=== PATIENT | female | born 1960 | race Caucasian/White ===

== ENCOUNTER 2016-11-07 07:52 | Day surgery (SDC) | payer BC ==
[~2016-11-07] VITALS: Ht 165.1 cm; Wt 99.7 kg
[2016-11-07] VITALS (16 sets, daily range): BP systolic 100–142; BP diastolic 65–99; PULSE 72–89; RESP 14–22; Ht 165.1 cm; Wt 99.7 kg
[2016-11-07] MEDS ORDERED: LISI40TA9 PO (08:07)
[2016-11-07] MEDS ORDERED: ALBU18HF INHALATION (08:07)
[2016-11-07] MEDS ORDERED: CHOL100062 PO (08:08)
[2016-11-07] MEDS ORDERED: BUPR75TA9 PO (08:08)
[2016-11-07] MEDS ORDERED: IBUP800T25 PO (08:09)
[2016-11-07] MEDS ORDERED: SERT100T PO (08:09)
[2016-11-07 08:25] LABS: ABNORMAL IP MESSAGE 1; BASOPHIL # 0.1 10^3/ul (0.0-0.1); BASOPHILS % 0.8 % (0.0-2.0); EOSINOPHILS # 0.4 10^3/ul (0.0-0.5); EOSINOPHILS % 3.6 % (0.0-7.0); HEMATOCRIT 45.6 % (37.0-47.0); HEMOGLOBIN 15.4 g/dl (12.0-16.0); LYMPHOCYTES # 5.1 10^3/ul (0.8-2.9); LYMPHOCYTES % 44.4 % (15.0-51.0); MEAN CORPUSCULAR HEMOGLOBIN 32.4 pg (29.0-33.0); MEAN CORPUSCULAR HGB CONC 33.8 g/dl (32.0-37.0); MEAN PLATELET VOLUME 10.4 fl (7.4-10.4); MONOCYTE # 1.2 10^3/ul (0.3-0.9); NEUTROPHILS % 40.7 % (39.0-77.0); PLATELET COUNT 295 10^3/UL (140-415); RED BLOOD COUNT 4.75 10^6/ul (4.20-5.40); RED CELL DISTRIBUTION WIDTH 12.1 % (11.5-14.5); WHITE BLOOD COUNT 11.5 10^3/ul (4.8-10.8)
[2016-11-07 08:26] LABS: POSITIVE DIFF @See below
[2016-11-07] MEDS ORDERED: HEPARIN 1000 UNITS/NS (A-LINE) 1,000 ML ONE (08:29)
[2016-11-07] MEDS ORDERED: HEPARIN 1000 UNITS/ML 10 ML INJ ONE (08:29)
[2016-11-07] MEDS ORDERED: NITROGLYCERIN (IC) 100 MCG/ML INJ ONE (08:29)
[2016-11-07] MEDS ORDERED: VERAPAMIL 5 MG INJ ONE (08:29)
[2016-11-07] MEDS ORDERED: LIDOCAINE 1% (MDV) 20 ML INJ ONE (08:29)
[2016-11-07] MEDS ORDERED: MIDAZOLAM 1 MG/ML 2 ML INJ ONE (08:31)
[2016-11-07] MEDS ORDERED: FENTAnyl 50 MCG/ML VIAL ONE (08:31)
[2016-11-07 08:40] LABS: INR 0.88; PROTIME 11.9 Sec (12.2-14.2); PT RATIO 0.9
[2016-11-07 08:47] LABS: CALCIUM 9.8 mg/dl (8.4-10.2); CREATININE 0.8 mg/dl (0.44-1.00); POTASSIUM 4.4 mmol/L (3.5-5.1)
[2016-11-07] MEDS ORDERED: SOD CHLORIDE 0.9% 1,000 ML IV SCH (08:54)
--- NOTE | 2016-11-07 08:58 | OPR ---
Date/Time of Note Date/Time of Note DATE: 11/07/16 TIME: 08:55 Operative Report Free Text/Dictation DATE OF PROCEDURE: 11/07/2016 SNAKER TRACTOR DRIVER: Smith Ocampo MD PROCEDURES PERFORMED: 1. Left heart catheterization. 2. Transradial band applied to right wrist. PREINTERVENTION DIAGNOSIS: 1. Chest pain, Positive stress echo POSTINTERVENTION DIAGNOSES: 1. No significant coronary artery disease SEDATION: Conscious sedation with fentanyl 50 mcg IV and Versed 1 mg IV. DESCRIPTION OF PROCEDURE: The patient placed on packing line worker, pulse oximetry and supplemental oxygen as necessary. The right wrist was prepped and draped in a sterile fashion and infiltrated with 1% lidocaine. Via the Seldinger technique, the right radial artery was accessed. A 6-Gabonese sheath was inserted and through this the Nickerson catheter was advanced into the right coronary artery and left coronary artery and the left ventricle. Placement confirmed by fluoroscopy and hemodynamics. CATHETERIZATION FINDINGS: 1. Left main: No significant disease. 2. LAD: Large caliber vessel with no significant disease. 3. Circumflex: Medium caliber vessel with no significant disease. 4. Obtuse marginal: Medium caliber vessel with no significant disease. 5. RCA: Large dominant vessel with no significant disease HEMODYNAMICS: LVEDP 10. No significant aortic valve gradient on pigtail pullback. TOTAL CONTRAST: 22cc FLUOROSCOPY TIME: 1.9 minutes. COMPLICATIONS: None. FINAL RESULTS: No significant coronary artery disease RECOMMENDATIONS: Medical management. Discharge home. SMITH OCAMPO Nov 07, 2016 08:58
--- NOTE | 2016-11-08 11:12 | RADRPT ---
Vent Rate: 97 bpm RR Interval: 0 msec [place] Interval: 132 msec QRS Duration: 84 msec QT Interval: 330 msec QTC Interval: 419 msec P-R-T [place]: 80 - 72 - 80 degrees Normal sinus rhythm Normal ECG Electronically Signed By: Gato Maher [id number]
== END 2016-11-07 11:50 | disposition home or self-care (01) ==
LOC: SDS 07:52
PROVIDERS: ATTEND Internal Medicine
DX: R07.9 Chest pain, unspecified (principal); R94.39 Abnormal result of other cardiovascular function study
CPT/HCPCS: 80048; 85025; 85610; 93005; 93458; C1887; J1644; J2250; J3010; Z7610